=== PATIENT | female | born 1985 | race Two or more races ===

== ENCOUNTER 2022-12-13 17:32 | Emergency (ER) | payer OTHER ==
[~2022-12-13] VITALS: Ht 165.1 cm; Wt 64.0 kg
[2022-12-13 17:36] VITALS: BP 120/72
[2022-12-13 18:47] LABS: BASOPHILS % 0.7 % (0.0-2.0); EOSINOPHILS % 1.8 % (0.0-5.0); HEMATOCRIT. 39.9 % (36.0-48.0); HEMOGLOBIN. 13.6 g/dL (12.0-16.0); LYMPHOCYTES % 34.7 % (20.0-50.0); MEAN CORPUSCULAR HEMOGLOBIN 31.2 pg (28.0-32.0); MEAN CORPUSCULAR VOLUME 91.4 fL (81.0-99.0); MEAN PLATELET VOLUME 7.9 fl (7.4-10.4); MONOCYTES % 7.7 % (2.0-8.0); NEUTROPHILS % 55.1 % (40.0-76.0); PLATELET 321 x1000/uL (130-400); RED BLOOD CELL COUNT 4.37 mill/uL (4.2-5.4); RED CELL DISTRIBUTION WIDTH 13.4 % (11.6-14.6)
[2022-12-13 18:59] LABS: CHLORIDE 107 mEq/L (98-107)
[2022-12-13 19:09] LABS: HCG SCREEN NEGATIVE
[2022-12-13 22:56] LABS: CLARITY URINE CLOUDY (CLEAR); COLOR URINE YELLOW (YELLOW); KETONES URINE NEGATIVE (NEGATIVE); LEUKOCYTE ESTERASE URINE 1+ (NEGATIVE); NITRITE URINE NEGATIVE (NEGATIVE); OCCULT BLOOD URINE 3+ (NEGATIVE); PH URINE 6.5 (4.5-8.0); PROTEIN URINE NEGATIVE (NEGATIVE); SPECIFIC GRAVITY URINE 1.022 (1.005-1.030); UROBILINOGEN URINE 0.2 E.U./dL (0.2-1.0)
[2022-12-13 23:53] LABS: BASOPHILS % 0.9 % (0.0-2.0); EOSINOPHILS % 2.2 % (0.0-5.0); HEMATOCRIT. 40.1 % (36.0-48.0); HEMOGLOBIN. 13.5 g/dL (12.0-16.0); MEAN PLATELET VOLUME 7.6 fl (7.4-10.4); MONOCYTES % 7.3 % (2.0-8.0); NEUTROPHILS % 62.6 % (40.0-76.0); PLATELET 317 x1000/uL (130-400); RED BLOOD CELL COUNT 4.36 mill/uL (4.2-5.4); RED CELL DISTRIBUTION WIDTH 13.5 % (11.6-14.6)
[2022-12-13 23:59] LABS: CHLORIDE 105 mEq/L (98-107)
[2022-12-14] MEDS ORDERED: METR-167 MT (01:24)
[2022-12-14] MEDS ORDERED: NAPROXEN 250MG TABLET PO SCH (09:00)
== END 2022-12-14 01:53 | disposition home or self-care (01) ==
LOC: ER 18:58
DX: N76.0 Acute vaginitis (principal)
CPT/HCPCS: 36415; 80053; 81003; 81025; 84703; 85025; 87210; 88304; 99284; Z7610

== ENCOUNTER 2023-08-29 16:47 | Emergency (ER) | payer OTHER ==
[~2023-08-29] VITALS: Ht 165.1 cm; Wt 68.0 kg
[~2023-08-29 16:47] MED LIST: METR-167 MT
[2023-08-29 17:06] VITALS: O2SAT 99
[2023-08-29 18:14] LABS: CLARITY URINE CLOUDY (CLEAR); COLOR URINE DARK YELLOW (YELLOW); GLUCOSE URINE NEGATIVE (NEGATIVE); KETONES URINE NEGATIVE (NEGATIVE); LEUKOCYTE ESTERASE URINE 3+ (NEGATIVE); NITRITE URINE NEGATIVE (NEGATIVE); OCCULT BLOOD URINE 2+ (NEGATIVE); PH URINE 7.5 (4.5-8.0); PROTEIN URINE 1+ (NEGATIVE); SPECIFIC GRAVITY URINE 1.009 (1.005-1.030)
[2023-08-29] MEDS ORDERED: ONDANSETRON 4MG ODT PO ONE (18:15)
[2023-08-29] MEDS ORDERED: IBUPROFEN 600MG TABLET PO ONE (18:15)
[2023-08-29 18:28] LABS: BACTERIA URINE 3+; SQUAMOUS EPITHELIAL CELL URINE 1+ /lpf (RARE/1+)
[2023-08-29 18:29] LABS: WBC URINE TNTC /hpf (0-2)
[2023-08-29 18:32] VITALS: BP 110/73
[2023-08-29] MEDS ORDERED: CEPHALEXIN 250MG CAPSULE PO NR (19:15)
[2023-08-29] MEDS ORDERED: CEPH500C2 MT (19:33)
[2023-08-29] MEDS ORDERED: IBUP-2029 MT (19:33)
[2023-08-29 19:48] VITALS: PULSE 75; RESP 18; TEMP 99.4
== END 2023-08-29 19:49 | disposition home or self-care (01) ==
LOC: ER 16:47
DX: N39.0 Urinary tract infection, site not specified (principal); R11.2 Nausea with vomiting, unspecified; M79.10 Myalgia, unspecified site; Z98.890 Other specified postprocedural states
CPT/HCPCS: 99284; 81003; 81025; 87086; 87186; 87077; Q0162